=== PATIENT | male | born 1970 | race American Indian/Alaskan Native ===

== ENCOUNTER 2020-08-06 15:37 | Inpatient (IN) | payer OTHER ==
--- NOTE | 2020-08-06 15:46 | Event Note ---
ED Screening Note Date of service: 08/06/20 Time: 15:44 ED Screening Note: Patient here for generalized weakness, fatigue, intermittent shortness of breath. Thought that he had coronavirus last week but tested negative. Went to his doctor today and was advised that he was hypotensive and to come here. States history of diabetes, glucose 121. On my exam does appear somewhat generally weak, nontoxic and in no distress, blood pressure 102/76. This initial assessment/diagnostic orders/clinical plan/treatment(s) is/are subject to change based on patients health status, clinical progression and re- assessment by fellow clinical providers in the ED. Further treatment and workup at subsequent clinical providers discretion. Patient/guardian urged not to elope from the ED as their condition may be serious if not clinically assessed and managed. Initial orders include: Labs, urinalysis, chest x-ray, EKG
[2020-08-06 16:06] LABS: Hematocrit 46.8 % (35.5-45.6); Hemoglobin 15.3 gm/dl (11.8-15.2); Mean Corpuscular HGB Conc 33 % (32-34); Mean Corpuscular Volume 84 fl (84-94); Platelet Count 636 K/mm3 (140-440); Red Blood Count 5.55 M/mm3 (3.65-5.03); Red Cell Distribution Width 13.7 % (13.2-15.2)
[2020-08-06 16:27] LABS: Albumin 3.9 g/dL (3.9-5); Calcium 10.2 mg/dL (8.4-10.2)
--- NOTE | 2020-08-06 16:28 | XRay Report ---
CHEST 2 VIEWS INDICATION: sob. Covid +2 weeks ago. COMPARISON: None FINDINGS: Support devices: None. Heart: Within normal limits. Lungs/pleura: There are moderate bilateral scattered airspace opacities consistent with viral infecti on or atypical pneumonia. No dense consolidation, pleural effusion or pneumothorax. There is poor in spiration. Additional findings: None. IMPRESSION: Diffuse bilateral lung opacities concerning for viral infection. Poor inspiration. Signer Name: Ryan Villaseñor Jr, MD Signed: 08/06/2020 4:24 PM Workstation Name: [id number]
[2020-08-06 17:00] LABS: Total Cells Counted 100
[2020-08-06 17:01] LABS: RBC Morphology Normal
--- NOTE | 2020-08-06 20:43 | Emergency Department Report ---
- General Chief complaint: Weakness Stated complaint: LOW BP SENT BY [facility] Time Seen by Provider: 08/06/20 15:44 Source: patient Mode of arrival: Ambulatory Limitations: No Limitations - History of Present Illness Initial comments: 49-year-old male, history of hypertension, presents to ED with generalized weakness. Patient states he tested positive for COVID-19 2 weeks ago. At that time his symptoms consisted of fever, body aches, loss of smell and taste, slight cough. Patient states now he is having some dyspnea on exertion. Patient was tested again 4 days ago and states the results were negative. Patient reports decreased p.o. intake for the last 5 days due to decreased appetite. States he has been sipping on Boost to try and get some sort of nutrition. Patient went to urgent care today because he was having generalized weakness. Patient's blood pressure was low at the urgent care, so he was advised to come to the ER. MD Complaint: generalized weakness, lack of energy -: days(s) (3) Location: generalized Severity: moderate Consistency: constant Improves with: none Worsens with: none Context: recent illness (COVID-19) Associated Symptoms: fever/chills, headaches, shortness of breath. denies: chest pain - Related Data Allergies Allergy/AdvReac Type Severity Reaction Status Date / Time No Known Allergies Allergy Unverified 08/06/20 15:42 ED Review of Systems ROS: Stated complaint: LOW BP SENT BY [facility] Other details as noted in HPI Comment: All other systems reviewed and negative Constitutional: chills, fever ENT: other (Reports loss of smell and taste) Respiratory: cough, SOB with exertion Cardiovascular: denies: chest pain Gastrointestinal: denies: vomiting, diarrhea Musculoskeletal: myalgia ED Past Medical Hx - Past Medical History Hx Diabetes: Yes - Surgical History Past Surgical History?: No - Social History Smoking Status: Never Smoker Substance Use Type: None ED Physical Exam - General Limitations: No Limitations General appearance: alert, in no apparent distress - Head Head exam: Present: atraumatic, normocephalic - Eye Eye exam: Present: normal appearance, EOMI - ENT ENT exam: Present: mucous membranes moist - Neck Neck exam: Present: normal inspection - Respiratory Respiratory exam: Present: normal lung sounds bilaterally. Absent: respiratory distress - Cardiovascular Cardiovascular Exam: Present: regular rate, normal rhythm - GI/Abdominal GI/Abdominal exam: Present: soft. Absent: distended, tenderness - Extremities Exam Extremities exam: Present: normal inspection - Neurological Exam Neurological exam: Present: alert, oriented X3 - Psychiatric Psychiatric exam: Present: normal affect, normal mood - Skin Skin exam: Present: warm, dry, intact, normal color ED Course Vital Signs 08/06/20 08/06/20 08/06/20 15:46 19:39 19:48 Temperature 98.0 F 98.4 F Pulse Rate 93 H Respiratory 18 18 Rate Blood Pressure 102/76 76/53 O2 Sat by Pulse 96 97 Oximetry 08/06/20 08/06/20 08/06/20 19:51 20:01 20:31 Temperature Pulse Rate 90 91 H 89 Respiratory 20 22 18 Rate Blood Pressure 101/61 101/61 105/51 O2 Sat by Pulse 98 96 96 Oximetry 08/06/20 21:01 Temperature Pulse Rate Respiratory Rate Blood Pressure 100/73 O2 Sat by Pulse 95 Oximetry ED Medical Decision Making - Lab Data Result diagrams: 08/06/20 15:53 08/06/20 15:53 - Radiology Data Radiology results: report reviewed, image reviewed - Medical Decision Making 49-year-old male, tested positive for COVID-19 2 weeks ago, presents to ED with generalized weakness. Patient hypotensive here in the ED, however map has remained above 65. Patient reports some dyspnea on exertion. Chest x-ray shows bilateral pneumonia. Ambulatory O2 sats on room air stays at around 95%. Patient does not appear to be hypoxic. Labs show some acute renal failure and lactic acidosis with lactate of 5. This may be secondary to dehydration as patient reports he has not had an appetite and has had decreased p.o. intake o bipin the last 5 days. Blood cultures drawn, patient given Rocephin and azithromycin. He does not require Decadron at this time as patient is not hypoxic. His acute renal failure and hypotension may be secondary to dehydration and not eating. I have avoided 30/kg sepsis dose of IV fluids using patient's actual body weight as it is recommended that patients with COVID be kept as dry as possible. Using patient's actual body weight, with this dosing, patient would receive 3,450 mL. Patient does require some IV fluids secondary to his dehydration. Will use calculated ideal body weight of 78 kg for 30/kg bolus dosing, which amounts to a total of 2,340 mL fluid bolus. Patient will be admitted to hospitalist, Dr. Dyson, for further management. - Differential Diagnosis COVID, pneumonia, dehydration Critical Care Time: Yes Critical care time in (mins) excluding proc time.: 35 Critical care attestation.: If time is entered above; I have spent that time in minutes in the direct care of this critically ill patient, excluding procedure time. Critical Care Time: 35 min ED Disposition Clinical Impression: Pneumonia due to COVID-19 virus, Sepsis, Acute renal failure Disposition: OP ADMIT IP TO THIS HOSP Is pt being admited?: Yes Condition: Stable Instructions: Bacterial Pneumonia (ED) Referrals: PRIMARY CARE, [Primary Care Provider] - 3-5 Days Time of Disposition: 22:18
[2020-08-06] MEDS ORDERED: SODIUM CHLORIDE 0.9% 500 ML 500 ML IV ONE ×2 (20:44→21:57)
[2020-08-06] MEDS: cefTRIAXone/NS 1 GM/50 ML 1 GM/50 ML BAG IV ONE ×2 (22:03→22:30)
[2020-08-06] MEDS: AZITHROMYCIN 250 MG TAB PO ONE ×2 (22:03→22:33)
[2020-08-06] MEDS ORDERED: SODIUM CHLORIDE 0.9% 1000 ML 1,000 ML IV SCH ×2 (22:15→22:45)
[2020-08-06] MEDS ORDERED: SODIUM CHLORIDE 0.9% 1000 ML IV SOLN IV ONE (22:29)
[2020-08-06] MEDS ORDERED: MAGNESIUM HYDROXIDE (MOM) ORAL LIQD UDC PO PRN (22:33)
[2020-08-06] MEDS ORDERED: ONDANSETRON 4 MG/2 ML INJ IV PRN (22:33)
[2020-08-06] MEDS ORDERED: DEXTROSE 50% IN WATER (25GM) 50 ML SYRINGE IV PRN (22:33)
[2020-08-06] MEDS ORDERED: ACETAMINOPHEN 325 MG TAB PO PRN (22:33)
--- NOTE | 2020-08-06 22:45 | History and Physical Report ---
History of Present Illness Date of examination: 08/06/20 Date of admission: 08/06/2020 Chief complaint: Cough Fever Loss of appetite History of present illness: 78-year-old male with known history of hypertension and diabetes mellitus presenting to the emergency room today complaining of generalized weakness, fever and body aches over the past 24 to 48 hours. Patient indicates that he tested positive for COVID-19 about 2 weeks ago. However he has started having shortness of breath especially on exertion, cough which is nonproductive. He also indicates that he went for repeat COVID-19 test about 4 days ago and was said to be negative. He has been having decreased oral intake, loss of smell and taste. Patient was active in urgent care facility earlier today and his blood pressure was said to be low and therefore sent to the emergency room for further angela luation. Work-up in the emergency room today, chest x-ray reveals:Diffuse bilateral lung opacities concerning for viral infection, labs reveals lactic acidosis . Patient is admitted with pneumonia and started on empiric IV antibiotics. He will also be ruled out for COVID-19. Past History Past Medical History: diabetes, hypertension Past Surgical History: No surgical history Social history: no significant social history Family history: no significant family history Medications and Allergies Allergies Allergy/AdvReac Type Severity Reaction Status Date / Time No Known Allergies Allergy Verified 08/06/20 22:41 Active Meds: Active Medications Acetaminophen (Acetaminophen 325 Mg Tab) 650 mg PO Q4H PRN PRN Reason: Pain MILD(1-3)/Fever >100.5/WYNN Dextrose (Dextrose 50% In Water (25gm) 50 Ml Syringe) 50 ml IV Q30MIN PRN; Protocol PRN Reason: Hypoglycemia Dextrose (Dextrose 50% In Water (25gm) 50 Ml Syringe) 50 ml IV Q30MIN PRN; Protocol PRN Reason: Hypoglycemia Sodium Chloride (Nacl 0.9% 1000 Ml) 1,000 mls @ 75 mls/hr IV DIRECT CLAUDIA Ceftriaxone Sodium (Rocephin/Ns 2 Gm/100 Ml) 2 gm in 100 mls @ 200 mls/hr IV Q24H CLAUDIA; Protocol Azithromycin (Zithromax/Ns) 500 mg in 250 mls @ 250 mls/hr IV Q24H CLAUDIA; Protocol Insulin Human Lispro (Insulin Lispro 100 Unit/Ml) 0 unit SUB-Q ACHS CLAUDIA; Edgard col Magnesium Hydroxide (Magnesium Hydroxide (Mom) Oral Liqd Udc) 30 ml PO Q4H PRN PRN Reason: Constipation Ondansetron HCl (Ondansetron 4 Mg/2 Ml Inj) 4 mg IV Q8H PRN PRN Reason: Nausea And Vomiting Sodium Chloride (Sodium Chloride 0.9% 10 Ml Flush Syringe) 10 ml IV BID CLAUDIA Sodium Chloride (Sodium Chloride 0.9% 10 Ml Flush Syringe) 10 ml IV PRN PRN PRN Reason: LINE FLUSH Review of Systems Constitutional: fever, chills, fatigue, poor appetite Ears, nose, mouth and throat: no nasal congestion, no sore throat Cardiovascular: no chest pain, no palpitations Respiratory: cough, shortness of breath, no congestion, no wheezing Gastrointestinal: no abdominal pain, no nausea, no vomiting, no diarrhea Genitourinary Male: no dysuria, no hematuria, no flank pain, no nocturia Musculoskeletal: no neck pain, no low back pain Integumentary: no rash, no pruritis Neurological: no headaches, no confusion Psychiatric: no anxiety, no depression Exam - Constitutional Vitals: Temp Pulse Resp BP Pulse Ox 98.4 F 89 18 100/73 95 08/06/20 19:39 08/06/20 20:31 08/06/20 20:31 08/06/20 21:01 08/06/20 21:01 General appearance: Present: no acute distress, well-nourished - EENT Eyes: Present: PERRL, EOM intact. Absent: scleral icterus ENT: hearing intact, clear oral mucosa, dentition normal - Neck Neck: Present: supple, normal ROM - Respiratory Respiratory effort: normal Respiratory: bilateral: diminished - Cardiovascular Rhythm: regular Heart Sounds: Present: S1 & S2. Absent: gallop, systolic murmur, diastolic murmur, rub, click - Extremities Extremities: no ischemia, pulses intact, pulses symmetrical, No edema, normal temperature, normal color, Full ROM Peripheral Pulses: within normal limits - Abdominal General gastrointestinal: Present: soft, non-tender, non-distended, normal bowel sounds. Absent: mass - Integumentary Integumentary: Present: clear, warm, dry. Absent: rash - Musculoskeletal Musculoskeletal: strength equal bilaterally - Psychiatric Psychiatric: appropriate mood/affect, intact judgment & insight, memory intact, cooperative - Neurologic Neurologic: CNII-XII intact, no focal deficits, moves all extremities Results - Labs CBC & Chem 7: 08/06/20 15:53 08/06/20 15:53 Labs: Abnormal lab results 08/06/20 08/06/20 08/06/20 Range/Units 15:45 15:53 15:53 RBC 5.55 H (3.65-5.03) M/mm3 Hgb 15.3 H (11.8-15.2) gm/dl Hct 46.8 H (35.5-45.6) % Plt Count 636 H (140-440) K/mm3 Seg Neuts % (Manual) 79.0 H (40.0-70.0) % Carbon Dioxide 20 L (22-30) mmol/L BUN 49 H (9-20) mg/dL Creatinine 1.9 H (0.8-1.3) mg/dL Glucose 178 H (75-100) mg/dL POC Glucose 146 H (70-105) mg/dL Lactic Acid (0.7-2.0) mmol/L AST 97 H (5-40) units/L ALT 204 H (7-56) units/L 08/06/20 Range/Units 21:30 RBC (3.65-5.03) M/mm3 Hgb (11.8-15.2) gm/dl Hct (35.5-45.6) % Plt Count (140-440) K/mm3 Seg Neuts % (Manual) (40.0-70.0) % Carbon Dioxide (22-30) mmol/L BUN (9-20) mg/dL Creatinine (0.8-1.3) mg/dL Glucose (75-100) mg/dL POC Glucose (70-105) mg/dL Lactic Acid 5.00 H* (0.7-2.0) mmol/L AST (5-40) units/L ALT (7-56) units/L Assessment and Plan - Patient Problems (1) Pneumonia due to COVID-19 virus Current Visit: Yes Status: Acute Plan to address problem: Patient started on empiric IV antibiotics. We will check repeat COVID-19 test. Consult placed to infectious disease for evaluation and recommendation. Meanwhile patient placed on isolation precautions. (2) Sepsis Current Visit: Yes Status: Acute Plan to address problem: Possibly secondary to the pneumonia. Patient will be given gentle IV fluid hydration and we will continue with antibiotics. (3) Acute renal failure Current Visit: Yes Status: Acute Plan to address problem: Possibly prerenal. Patient given some IV fluid. Will follow up on BUN and creatinine. Baseline BUN and creatinine unknown. We will also appreciate inputs from nephrology. (4) Diabetes mellitus Current Visit: Yes Status: Acute Plan to address problem: We will monitor Accu-Cheks closely for good glycemic control. (5) DVT prophylaxis Current Visit: Yes Status: Acute Plan to address problem: Patient placed on subcutaneous heparin. (6) Full code status Current Visit: Yes Status: Acute Plan to address problem: Patient is a full code.
[2020-08-07 02:21] LABS: C-Reactive Protein 0.1 mg/dL (0.00-1.30)
[2020-08-07] MEDS: HEPARIN 5,000 UNIT/1 ML VIAL SUB-Q SCH ×3 (05:29→23:39)
[2020-08-07 06:29] LABS: Basophils # (Auto) 0.1 K/mm3 (0.0-0.1); Basophils % (Auto) 1.2 % (0.0-1.8); Eosinophils # (Auto) 0.1 K/mm3 (0.0-0.4); Eosinophils % (Auto) 0.8 % (0.0-4.3); Hematocrit 39.9 % (35.5-45.6); Hemoglobin 13.1 gm/dl (11.8-15.2); Lymphocytes # (Auto) 1.4 K/mm3 (1.2-5.4); Lymphocytes % (Auto) 17.8 % (13.4-35.0); Mean Corpuscular HGB Conc 33 % (32-34); Mean Corpuscular Volume 85 fl (84-94); Monocytes # (Auto) 0.9 K/mm3 (0.0-0.8); Monocytes % (Auto) 11.7 % (0.0-7.3); Platelet Count 466 K/mm3 (140-440); Red Blood Count 4.71 M/mm3 (3.65-5.03); Red Cell Distribution Width 13.5 % (13.2-15.2)
[2020-08-07 06:41] LABS: INR 1.08 (0.87-1.13)
[2020-08-07 06:44] LABS: Calcium 8.9 mg/dL (8.4-10.2)
[2020-08-07] MEDS: INSULIN LISPRO 100 UNIT/ML SUB-Q SCH ×5 (07:30→23:45)
[2020-08-07] MEDS ORDERED: AZITHROMYCIN/NS 500 MG/250 ML 500 MG/250 ML BAG IV SCH (10:00)
[2020-08-07] MEDS ORDERED: cefTRIAXone/NS 2 GM/100 ML 2 GM/100 ML BAG IV SCH (10:00)
[2020-08-07 11:12] LABS: Bilirubin,Urine NEG (Negative); Blood,Urine SM (Negative); Color,Urine Yellow (Yellow); Mucus,Urine FEW /HPF; Urobilinogen,Urine < 2.0 mg/dL (<2.0)
--- NOTE | 2020-08-07 12:42 | Consultation ---
History of Present Illness - Reason for Consult Consult date: 08/07/20 acute renal failure Requesting physician: BART MURRY - History of Present Illness This is a 49 yo M with past medical history of hypertension and diabetes mellitus presenting to the ER with complaints of SOB, WARREN, generalized weakness, fever and body aches over the past 24hrs. Patient reportedly was tested positive for COVID-19 about 2 weeks ago and a repeat COVID-19 test about 4 days ago and was said to be negative. He has been experiencing decreased oral intake, loss of smell and taste. in ER BP was as low as 70/50s, chest x-ray showed diffuse bilateral lung opacities concerning for viral infection, labs reveals lactic acidosis. Patient is admitted with pneumonia and started on empiric IV antibiotics. Labs also showed elevaterd lactic acid at >2.4, Ferritin 695, LDH 77, elevated BUN/Cr at 49/1.9mg/dl further rising to 49/2.8mg/dl for which renal consult is requested. Pt denies prior history of renal disease. Past History Past Medical History: diabetes, hypertension Past Surgical History: No surgical history Social history: no significant social history Family history: no significant family history Medications and Allergies Allergies Allergy/AdvReac Type Severity Reaction Status Date / Time No Known Allergies Allergy Verified 08/06/20 22:41 Active Meds: Active Medications Acetaminophen (Acetaminophen 325 Mg Tab) 650 mg PO Q4H PRN PRN Reason: Pain MILD(1-3)/Fever >100.5/WYNN Dextrose (Dextrose 50% In Water (25gm) 50 Ml Syringe) 50 ml IV Q30MIN PRN; Protocol PRN Reason: Hypoglycemia Heparin Sodium (Porcine) (Heparin 5,000 Unit/1 Ml Vial) 5,000 unit SUB-Q Q8HR CLAUDIA Last Admin: 08/07/20 05:29 Dose: 5,000 unit Documented by: Sodium Chloride (Nacl 0.9% 1000 Ml) 1,000 mls @ 75 mls/hr IV DIRECT CLAUDIA Last Admin: 08/07/20 05:28 Dose: 75 mls/hr Documented by: Ceftriaxone Sodium (Rocephin/Ns 2 Gm/100 Ml) 2 gm in 100 mls @ 200 mls/hr IV Q24HR CLAUDIA; Protocol Last Admin: 08/07/20 10:48 Dose: 200 mls/hr Documented by: Azithromycin (Zithromax/Ns) 500 mg in 250 mls @ 250 mls/hr IV Q24HR [facility]; Protocol Stop: 08/10/20 10:59 Last Admin: 08/07/20 11:39 Dose: 250 mls/hr Documented by: Insulin Human Lispro (Insulin Lispro 100 Unit/Ml) 0 unit SUB-Q ACHS CLAUDIA; Pro tocol Last Admin: 08/07/20 11:30 Dose: Not Given Documented by: Magnesium Hydroxide (Magnesium Hydroxide (Mom) Oral Liqd Udc) 30 ml PO Q4H PRN PRN Reason: Constipation Ondansetron HCl (Ondansetron 4 Mg/2 Ml Inj) 4 mg IV Q8H PRN PRN Reason: Nausea And Vomiting Sodium Chloride (Sodium Chloride 0.9% 10 Ml Flush Syringe) 10 ml IV BID CLAUDIA Last Admin: 08/07/20 10:47 Dose: 10 ml Documented by: Sodium Chloride (Sodium Chloride 0.9% 10 Ml Flush Syringe) 10 ml IV PRN PRN PRN Reason: LINE FLUSH Review of Systems All systems: negative Constitutional: weakness, malaise Respiratory: shortness of breath, dyspnea on exertion Exam - Vital Signs Vital signs: Vital Signs Temp Resp BP 98.0 F 18 102/76 08/06/20 15:46 08/06/20 15:46 08/06/20 15:46 - General Appearance General appearance: well-developed, well-nourished, appears stated age EENT: ATNC, PERRL, mucous membranes moist Neck: Present: neck supple Respiratory: Clear to Ascultation Heart: regular, S1S2 Gastrointestinal: Present: normoactive bowel sounds Integumentary: no rash Neurologic: no focal deficit, alert and oriented x3, strength 5/5, CN 3-12 intact Psychiatric: mood/affect appropriate, cooperative Results - Lab Results 08/07/20 05:25 08/07/20 05:25 Most recent lab results Calcium 8.9 mg/dL (8.4-10.2) 08/07/20 05:25 Magnesium 2.20 mg/dL (1.7-2.3) 08/06/20 15:53 Assessment and Plan - Patient Problems (1) Acute kidney failure with tubular necrosis Current Visit: Yes Status: Acute Plan to address problem: acute kidney injury is most likely d/t ATN in the setting of sepsis and hypotension. BP improved with multiple IV NS boluses, pt does not require vasopressors at present. Pt remains nonoliguric, no acute indication for renal replacement therapy, however Cr is rising further. Will monitor lytes and renal parameters closely and make further recommendations. check UA, urine lytes urine P/C ratio. Cont supportive care for MICHELLE/ATN avoid further nephrotoxins, NSAIDs, IV contrast. (2) Pneumonia due to COVID-19 virus Current Visit: Yes Status: Acute Plan to address problem: pt initiated on azithromycin/ceftriaxone. no renal adjustment needed. repeat COVID19 test pending. (3) Sepsis Current Visit: Yes Status: Acute Plan to address problem: BP stabilized with IV NS boluses, currently on empiric ABXs (4) Lactic acidosis Current Visit: Yes Status: Acute Plan to address problem: LA improved form 2.4 to 1.7 with hemodynamic stablization
--- NOTE | 2020-08-07 13:12 | Progress Note ---
Assessment and Plan --Pneumonia due to COVID-19 virus repeat COVID-19 test positive Consult placed to infectious disease for evaluation and recommendation. Patient started on dexamethasone for 10 days Patient does not qualify for remdesivir Meanwhile patient placed on isolation precautions. --Sepsis, ruled out Patient is vitally stable no leukocyte count Elevated lactic acid for dehydration --Diabetes mellitus We will monitor Accu-Cheks closely for good glycemic control. --Elevated D-dimer Ordered for VQ scan and lower extremity venous Doppler --MICHELLE, likely due to ATN from sepsis Continue to follow renal function, start on IV fluid If no improvement will consult nephrology Avoid nephrotoxins --Elevated lactic acid, likely due to dehydration Improved after IV fluid hydration -- DVT prophylaxis Patient placed on subcutaneous heparin. -- Full code status Daily course: 08/07/20: pending COVID test, follow inflammatory markers, cont abx for now. Order for VQ scan and lower extremity venous Doppler for elevated D-dimer. Start on gentle IV fluid hydration for MICHELLE. Follow BMP Subjective Date of service: 08/07/20 Interval history: Patient seen and examined. Medical records and medication list reviewed. No acute event overnight noted by the RN. Patient denies any chest pain, states that his appetite somewhat improved Discussed plan of care at bedside with patient. Objective - Exam Narrative Exam: Limited physical exam due to COVID-19 pandemic to minimize transmission of the disease. Vital reviewed and stable. GENERAL: well-developed well-nourished elderly lying on bed appeared to be in no discomfort. HEENT: Normocephalic. Atraumatic. NECK: Supple. CHEST/LUNGS: breathing nonlabored. HEART/CARDIOVASCULAR: Heart rate noted stable on chart ABDOMEN: Visibly not distended SKIN: There is no rash NEURO: No focal motor deficit. Follows command. MUSCULOSKELETAL: No joint effusion EXTRIMITY: No swelling, no cyanosis or clubbing. PSYCH: Cooperative. - Constitutional Vitals: Vital Signs - 12hr 08/07/20 08/07/20 08/07/20 01:38 01:52 06:17 Temperature 97.9 F Pulse Rate 92 H Respiratory 16 Rate Blood Pressure 113/73 119/80 O2 Sat by Pulse 96 94 Oximetry 08/07/20 12:00 Temperature 98.1 F Pulse Rate 93 H Respiratory 20 Rate Blood Pressure 111/71 O2 Sat by Pulse 94 Oximetry - Labs CBC & Chem 7: 02/04/21 04:46 08/08/20 04:46 Labs: Abnormal lab results 08/06/20 08/06/20 08/06/20 Range/Units 15:45 15:53 15:53 RBC 5.55 H (3.65-5.03) M/mm3 Hgb 15.3 H (11.8-15.2) gm/dl Hct 46.8 H (35.5-45.6) % Plt Count 636 H (140-440) K/mm3 Eddy % (Auto) (0.0-7.3) % Eddy # (Auto) (0.0-0.8) K/mm3 Seg Neuts % (Manual) 79.0 H (40.0-70.0) % D-Dimer (0-234) ng/mlDDU Carbon Dioxide 20 L (22-30) mmol/L BUN 49 H (9-20) mg/dL Creatinine 1.9 H (0.8-1.3) mg/dL Glucose 178 H (75-100) mg/dL POC Glucose 146 H (70-105) mg/dL Lactic Acid (0.7-2.0) mmol/L Ferritin (30.0-300.0) ng/mL AST 97 H (5-40) units/L ALT 204 H (7-56) units/L Lactate Dehydrogenase (91-180) units/L 08/06/20 08/06/20 08/06/20 Range/Units 21:30 22:33 22:33 RBC (3.65-5.03) M/mm3 Hgb (11.8-15.2) gm/dl Hct (35.5-45.6) % Plt Count (140-440) K/mm3 Eddy % (Auto) (0.0-7.3) % Eddy # (Auto) (0.0-0.8) K/mm3 Seg Neuts % (Manual) (40.0-70.0) % D-Dimer 2945.94 H (0-234) ng/mlDDU Carbon Dioxide (22-30) mmol/L BUN (9-20) mg/dL Creatinine (0.8-1.3) mg/dL Glucose (75-100) mg/dL POC Glucose (70-105) mg/dL Lactic Acid 5.00 H* 2.40 H* (0.7-2.0) mmol/L Ferritin (30.0-300.0) ng/mL AST (5-40) units/L ALT (7-56) units/L Lactate Dehydrogenase (91-180) units/L 08/06/20 08/06/20 08/07/20 Range/Units 22:33 22:33 05:25 RBC (3.65-5.03) M/mm3 Hgb (11.8-15.2) gm/dl Hct (35.5-45.6) % Plt Count 466 H (140-440) K/mm3 Eddy % (Auto) 11.7 H (0.0-7.3) % Eddy # (Auto) 0.9 H (0.0-0.8) K/mm3 Seg Neuts % (Manual) (40.0-70.0) % D-Dimer (0-234) ng/mlDDU Carbon Dioxide (22-30) mmol/L BUN (9-20) mg/dL Creatinine (0.8-1.3) mg/dL Glucose (75-100) mg/dL POC Glucose (70-105) mg/dL Lactic Acid (0.7-2.0) mmol/L Ferritin 695.4 H (30.0-300.0) ng/mL AST (5-40) units/L ALT (7-56) units/L Lactate Dehydrogenase 77 L (91-180) units/L 08/07/20 Range/Units 05:25 RBC (3.65-5.03) M/mm3 Hgb (11.8-15.2) gm/dl Hct (35.5-45.6) % Plt Count (140-440) K/mm3 Eddy % (Auto) (0.0-7.3) % Eddy # (Auto) (0.0-0.8) K/mm3 Seg Neuts % (Manual) (40.0-70.0) % D-Dimer (0-234) ng/mlDDU Carbon Dioxide (22-30) mmol/L BUN 49 H (9-20) mg/dL Creatinine 2.8 H (0.8-1.3) mg/dL Glucose (75-100) mg/dL POC Glucose (70-105) mg/dL Lactic Acid (0.7-2.0) mmol/L Ferritin (30.0-300.0) ng/mL AST (5-40) units/L ALT (7-56) units/L Lactate Dehydrogenase (91-180) units/L
[2020-08-07] MEDS ORDERED: SODIUM CHLORIDE 0.9% 1000 ML 1,000 ML IV SCH (13:15)
--- NOTE | 2020-08-07 14:07 | Consultation ---
History of Present Illness - Reason for Consult Consult date: 08/07/20 COVID-19 Requesting physician: BART MURRY - History of Present Illness The patient is a 49-year-old male with hypertension admitted to the hospital with generalized weakness. He also had fever, body ache, cough along with loss of smell and taste. He tested positive for COVID-19 as an outpatient. Due to poor appetite and shortness of breath, he came to the ER. Labs revealed normal CBC. D-dimer 2945. Creatinine increased, today's 2.8, procalcitonin 0.06. Ferritin 695, LDH 77, CRP 0.1. Patient is on room air. Review of Systems: reviewed in the chart, unable to obtain, minimize risk of transmission Past History Past Medical History: diabetes, hypertension Past Surgical History: No surgical history Social history: no significant social history Family history: no significant family history Medications and Allergies Allergies Allergy/AdvReac Type Severity Reaction Status Date / Time No Known Allergies Allergy Verified 08/06/20 22:41 Active Meds: Active Medications Acetaminophen (Acetaminophen 325 Mg Tab) 650 mg PO Q4H PRN PRN Reason: Pain MILD(1-3)/Fever >100.5/[place] Dextrose (Dextrose 50% In Water (25gm) 50 Ml Syringe) 50 ml IV Q30MIN PRN; Protocol PRN Reason: Hypoglycemia Heparin Sodium (Porcine) (Heparin 5,000 Unit/1 Ml Vial) 5,000 unit SUB-Q Q8HR CLAUDIA Last Admin: 08/07/20 05:29 Dose: 5,000 unit Documented by: Ceftriaxone Sodium (Rocephin/Ns 2 Gm/100 Ml) 2 gm in 100 mls @ 200 mls/hr IV Q24HR CLAUDIA; Protocol Last Admin: 08/07/20 10:48 Dose: 200 mls/hr Documented by: Azithromycin (Zithromax/Ns) 500 mg in 250 mls @ 250 mls/hr IV Q24HR CLAUDIA; P rotocol Stop: 08/10/20 10:59 Last Admin: 08/07/20 11:39 Dose: 250 mls/hr Documented by: Sodium Chloride (Nacl 0.9% 1000 Ml) 1,000 mls @ 75 mls/hr IV DIRECT CLAUDIA Insulin Human Lispro (Insulin Lispro 100 Unit/Ml) 0 unit SUB-Q ACHS CLAUDIA; Protocol Last Admin: 08/07/20 11:30 Dose: Not Given Documented by: Magnesium Hydroxide (Magnesium Hydroxide (Mom) Oral Liqd Udc) 30 ml PO Q4H PRN PRN Reason: Constipation Ondansetron HCl (Ondansetron 4 Mg/2 Ml Inj) 4 mg IV Q8H PRN PRN Reason: Nausea And Vomiting Sodium Chloride (Sodium Chloride 0.9% 10 Ml Flush Syringe) 10 ml IV BID [facility] Last Admin: 08/07/20 10:47 Dose: 10 ml Documented by: Sodium Chloride (Sodium Chloride 0.9% 10 Ml Flush Syringe) 10 ml IV PRN PRN PRN Reason: LINE FLUSH Physical Examination - Physical Exam Narrative exam: Physical Exam (reviewed in chart to minimize risk of transmission) Constitutional: deferred Head, Ears, Nose: deferred Eyes: deferred Neck: deferred Oral: deferred Cardiovascular: deferred Respiratory: deferred GI: deferred Musculoskeletal: deferred Skin: deferred Hem/Lymphatic: deferred Psych: deferred Neurological: deferred - Constitutional Vitals: Vital Signs Temp Pulse Resp BP Pulse Ox 98.1 F 93 H 20 111/71 94 08/07/20 12:00 08/07/20 12:00 08/07/20 12:00 08/07/20 12:00 08/07/20 12:00 Temperature -Last 24 Hours Temperature 98.1 F Temperature 97.9 F Temperature 98.1 F Temperature 98.4 F Temperature 98.0 F Results - Labs CBC & Chem 7: 08/07/20 05:25 08/07/20 05:25 Labs: Abnormal lab results 08/06/20 08/06/20 08/06/20 Range/Units 15:45 15:53 15:53 RBC 5.55 H (3.65-5.03) M/mm3 Hgb 15.3 H (11.8-15.2) gm/dl Hct 46.8 H (35.5-45.6) % Plt Count 636 H (140-440) K/mm3 [place] % (Auto) (0.0-7.3) % [place] # (Auto) (0.0-0.8) K/mm3 Seg Neuts % (Manual) 79.0 H (40.0-70.0) % D-Dimer (0-234) ng/mlDDU Carbon Dioxide 20 L (22-30) mmol/L BUN 49 H (9-20) mg/dL Creatinine 1.9 H (0.8-1.3) mg/dL Glucose 178 H (75-100) mg/dL POC Glucose 146 H (70-105) mg/dL Lactic Acid (0.7-2.0) mmol/L Ferritin (30.0-300.0) ng/mL AST 97 H (5-40) units/L ALT 204 H (7-56) units/L Lactate Dehydrogenase (91-180) units/L 08/06/20 08/06/20 08/06/20 Range/Units 21:30 22:33 22:33 RBC (3.65-5.03) M/mm3 Hgb (11.8-15.2) gm/dl Hct (35.5-45.6) % Plt Count (140-440) K/mm3 [place] % (Auto) (0.0-7.3) % [place] # (Auto) (0.0-0.8) K/mm3 Seg Neuts % (Manual) (40.0-70.0) % D-Dimer 2945.94 H (0-234) ng/mlDDU Carbon Dioxide (22-30) mmol/L BUN (9-20) mg/dL Creatinine (0.8-1.3) mg/dL Glucose (75-100) mg/dL POC Glucose (70-105) mg/dL Lactic Acid 5.00 H* 2.40 H* (0.7-2.0) mmol/L Ferritin (30.0-300.0) ng/mL AST (5-40) units/L ALT (7-56) units/L Lactate Dehydrogenase (91-180) units/L 08/06/20 08/06/20 08/07/20 Range/Units 22:33 22:33 05:25 RBC (3.65-5.03) M/mm3 Hgb (11.8-15.2) gm/dl Hct (35.5-45.6) % Plt Count 466 H (140-440) K/mm3 [place] % (Auto) 11.7 H (0.0-7.3) % [place] # (Auto) 0.9 H (0.0-0.8) K/mm3 Seg Neuts % (Manual) (40.0-70.0) % D-Dimer (0-234) ng/mlDDU Carbon Dioxide (22-30) mmol/L BUN (9-20) mg/dL Creatinine (0.8-1.3) mg/dL Glucose (75-100) mg/dL POC Glucose (70-105) mg/dL Lactic Acid (0.7-2.0) mmol/L Ferritin 695.4 H (30.0-300.0) ng/mL AST (5-40) units/L ALT (7-56) units/L Lactate Dehydrogenase 77 L (91-180) units/L 08/07/20 Range/Units 05:25 RBC (3.65-5.03) M/mm3 Hgb (11.8-15.2) gm/dl Hct (35.5-45.6) % Plt Count (140-440) K/mm3 [place] % (Auto) (0.0-7.3) % [place] # (Auto) (0.0-0.8) K/mm3 Seg Neuts % (Manual) (40.0-70.0) % D-Dimer (0-234) ng/mlDDU Carbon Dioxide (22-30) mmol/L BUN 49 H (9-20) mg/dL Creatinine 2.8 H (0.8-1.3) mg/dL Glucose (75-100) mg/dL POC Glucose (70-105) mg/dL Lactic Acid (0.7-2.0) mmol/L Ferritin (30.0-300.0) ng/mL AST (5-40) units/L ALT (7-56) units/L Lactate Dehydrogenase (91-180) units/L - Imaging and Cardiology Chest x-ray: report reviewed, image reviewed (Chest x-ray showed diffuse bilateral patchy infiltrates) Assessment and Plan Cultures: SARS CoV2 PCR: Positive as outpatient 08/07/2020 blood culture: No growth A/P: 49-year-old male with hypertension: #Bilateral pneumonia: Secondary to COVID-19. #Acute renal failure #Transaminitis Recs: -agree with IV/PO Dexamethasone 6 mg daily due to evidence of bilateral patchy infiltrates -Not hypoxic, also with renal failure, not a candidate for remdesivir -Procalcitonin is low, no antibiotics indicated at this time -F/U VTE evaluation -prophylactic anticoagulation based on d-dimer per hospital protocol -trend ferritin, LDH, d-dimer, CRP every 2-3 days for risk stratification and to assess disease progression Janie Hair MD, FACP [facility] ([facility] O: [phone] F: [phone]
--- NOTE | 2020-08-07 14:32 | Nuclear Medicine Report ---
NM perfusion only lung scan INDICATION / CLINICAL INFORMATION: Shortness of breath. TRACER: Technetium 99m MAA 5.1 mCi IV injection. COMPARISON: No relevant prior imaging study available. FINDINGS: Following injection of the above tracer, perfusion imaging was performed in 8 projections. Negative f or suspicious perfusion defect. IMPRESSION: No suspicious perfusion defect. Signer Name: Stu Ridley MD Signed: 08/07/2020 2:28 PM Workstation Name: [id number]
[2020-08-07] MEDS ORDERED: dexAMETHasone 4 MG/ML VIAL IV SCH (15:00)
--- NOTE | 2020-08-07 17:05 | Vascular Lab Report ---
DUPLEX DOPPLER LOWER EXTREMITY VEINS, BILATERAL INDICATION / CLINICAL INFORMATION: possible DVT. TECHNIQUE: Duplex doppler imaging was performed through the veins of both lower extremities using venous orquidea trev and other maneuvers. COMPARISON: None available. FINDINGS: RIGHT COMMON FEMORAL VEIN: Negative. RIGHT FEMORAL VEIN: Negative. RIGHT POPLITEAL VEIN: Negative. RIGHT CALF VEINS: Negative. LEFT COMMON FEMORAL VEIN: Negative. LEFT FEMORAL VEIN: Negative. LEFT POPLITEAL VEIN: Negative. LEFT CALF VEINS: Negative. ADDITIONAL FINDINGS: None. IMPRESSION: 1. No sonographic evidence for DVT in either lower extremity. Signer Name: Delmar Núñez MD Signed: 08/07/2020 5:01 PM Workstation Name: [id number]
[2020-08-07 19:08] LABS: Bacteria,Urine 1+ /HPF (Negative); Bilirubin,Urine NEG (Negative); Blood,Urine NEG (Negative); Color,Urine Yellow (Yellow); Mucus,Urine FEW /HPF; Protein,Urine <15 mg/dL mg/dL (Negative); RBC,Urine < 1.0 /HPF (0.0-6.0); Urobilinogen,Urine < 2.0 mg/dL (<2.0)
[2020-08-07 19:26] LABS: Creatinine,Urine 123.9 mg/dL (0.1-20.0)
[2020-08-08] MEDS: HEPARIN 5,000 UNIT/1 ML VIAL SUB-Q SCH (06:26)
[2020-08-08 06:33] LABS: Hematocrit 40.8 % (35.5-45.6)
[2020-08-08 06:49] LABS: Calcium 9.2 mg/dL (8.4-10.2)
[2020-08-08] MEDS: INSULIN LISPRO 100 UNIT/ML SUB-Q SCH ×2 (09:59→17:07)
[2020-08-08] MEDS ORDERED: ZINC SULFATE 220 MG CAP PO SCH (10:00)
[2020-08-08] MEDS ORDERED: DEXAMETHASONE 4 MG TAB PO SCH (10:00)
[2020-08-08] MEDS ORDERED: CHOLECALCIFEROL (VIT D3) 5,000 UNIT TAB PO SCH (10:00)
[2020-08-08] MEDS ORDERED: ASCORBIC ACID 500 MG TAB PO SCH (10:00)
--- NOTE | 2020-08-08 11:24 | Progress Note ---
Assessment and Plan Cultures: SARS CoV2 PCR: Positive as outpatient 08/07/2020 blood culture: No growth A/P: 49-year-old male with hypertension: #Bilateral pneumonia: Secondary to COVID-19. VTE eval negative. #MICHELLE: creatinine improving. #Transaminitis Recs: -get ambulatory sats, if not hypoxic, discontinue steroids Janie Hair MD, FACP [facility], [place] O: [phone] F: [phone] Subjective Date of service: 08/08/20 Interval history: No fever. remains on room air. Objective - Exam Narrative Exam: Physical Exam (reviewed in chart to minimize risk of transmission) Constitutional: deferred Head, Ears, Nose: deferred Eyes: deferred Neck: deferred Oral: deferred Cardiovascular: deferred Respiratory: deferred GI: deferred Musculoskeletal: deferred Skin: deferred Hem/Lymphatic: deferred Psych: deferred Neurological: deferred - Constitutional Vitals: Vital Signs Temp Pulse Resp BP Pulse Ox 98.2 F 92 H 18 134/84 96 08/08/20 06:11 08/08/20 06:11 08/08/20 06:11 08/08/20 06:11 08/08/20 06:11 Temperature -Last 24 Hours Temperature 98.2 F Temperature 97.5 F Temperature 98.1 F - Labs CBC & Chem 7: 08/08/20 04:46 08/08/20 04:46 Labs: Abnormal lab results 08/07/20 08/07/20 08/07/20 Range/Units 18:41 21:49 Unknown BUN (9-20) mg/dL Creatinine (0.8-1.3) mg/dL Glucose (75-100) mg/dL POC Glucose 185 H (70-105) mg/dL Urine Creatinine 123.9 H (0.1-20.0) mg/dL Urine Total Protein 19 H (5-11.8) mg/dL Coronavirus (PCR) Positive A (Negative) 08/08/20 08/08/20 Range/Units 04:46 07:47 BUN 42 H (9-20) mg/dL Creatinine 1.6 H (0.8-1.3) mg/dL Glucose 140 H (75-100) mg/dL POC Glucose 116 H (70-105) mg/dL Urine Creatinine (0.1-20.0) mg/dL Urine Total Protein (5-11.8) mg/dL Coronavirus (PCR) (Negative)
[2020-08-08 13:00] VITALS: BP 131/75
--- NOTE | 2020-08-08 13:34 | Progress Note ---
Assessment and Plan - Patient Problems (1) Acute kidney failure with tubular necrosis Current Visit: Yes Status: Acute Plan to address problem: acute kidney injury is most likely d/t ATN in the setting of sepsis and hypotension. BP improved with multiple IV NS boluses with ensuing improvement of renal function. Cr down to 1.6mg/dl. Cont supportive care for MICHELLE/ATN avoid further nephrotoxins, NSAIDs, IV contrast. (2) Pneumonia due to COVID-19 virus Current Visit: Yes Status: Acute Plan to address problem: pt initiated on azithromycin/ceftriaxone. no renal adjustment needed. repeat COVID19 test pending. (3) Sepsis Current Visit: Yes Status: Acute Plan to address problem: BP stabilized with IV NS boluses, currently on empiric ABXs (4) Lactic acidosis Current Visit: Yes Status: Acute Plan to address problem: LA improved form 2.4 to 1.7 with hemodynamic stablization Subjective Date of service: 08/08/20 Principal diagnosis: MICHELLE Interval history: in an effort to conserve Personal protective equipment and limit exposure, the patient was not directly examined by me. Interdisciplinary team notes, previous examinations, labs and diagnostics have been extensively reviewed and all recommendations taken into consideration. Physical exam deferred to primary team Objective - Exam Narrative Exam: exam deferred d/t PPE preservation - Vital Signs Vital signs: Vital Signs - 12hr 08/08/20 08/08/20 06:11 11:43 Temperature 98.2 F 98.7 F Pulse Rate 92 H 108 H Respiratory 18 18 Rate Blood Pressure 134/84 131/75 O2 Sat by Pulse 96 95 Oximetry - Lab 08/08/20 04:46 08/08/20 04:46 Most recent lab results Calcium 9.2 mg/dL (8.4-10.2) 08/08/20 04:46 Magnesium 2.20 mg/dL (1.7-2.3) 08/06/20 15:53 Urine Creatinine 123.9 mg/dL (0.1-20.0) H 08/07/20 18:41 Urine Sodium 46 mmol/L 08/07/20 18:41 Urine Total Protein 19 mg/dL (5-11.8) H 08/07/20 18:41 Medications & Allergies - Medications Allergies/Adverse Reactions: Allergies No Known Allergies Allergy (Verified 08/06/20 22:41) Home Medications: Home Medications Medication Instructions Recorded Confirmed Last Taken Type Ascorbic Acid [Vitamin C] 1,000 mg PO BID #14 tablet 08/08/20 Unknown Rx Cholecalciferol (Vitamin D3) 5,000 unit PO DAILY #7 tablet 08/08/20 Unknown Rx [Vitamin D3] Zinc Sulfate 220 mg PO BID #14 capsule 08/08/20 Unknown Rx dexAMETHasone [Decadron] 6 mg PO DAILY #7 tablet 08/08/20 Unknown Rx Active Medications: Generic Name Dose Route Start Last Admin Trade Name Freq PRN Reason Stop Dose Admin Acetaminophen 650 mg 08/06/20 22:33 Acetaminophen 325 Mg Tab PO Q4H PRN Pain MILD(1-3)/Fever >100.5/[place] Ascorbic Acid 1,000 mg 08/08/20 10:00 08/08/20 10:08 Ascorbic Acid 500 Mg Tab PO 1,000 mg BID CLAUDIA Administration Cholecalciferol 5,000 unit 08/08/20 10:00 08/08/20 10:08 Cholecalciferol (Vit D3) 5,000 Unit Tab PO 5,000 unit DAILY CLAUDIA Administration Dexamethasone 6 mg 08/08/20 10:00 08/08/20 10:07 Dexamethasone 4 Mg Tab PO 08/16/20 12:00 6 mg DAILY CLAUDIA Administration Dextrose 50 ml 08/06/20 22:33 Dextrose 50% In Water (25gm) 50 Ml Syringe IV Q30MIN PRN Hypoglycemia Protocol Heparin Sodium (Porcine) 5,000 unit 08/07/20 06:00 08/08/20 06:26 Heparin 5,000 Unit/1 Ml Vial SUB-Q 5,000 unit Q8HR CLAUDIA Administration Sodium Chloride 1,000 mls @ 75 mls/hr 08/07/20 13:15 08/08/20 00:55 Nacl 0.9% 1000 Ml IV 75 mls/hr DIRECT CLAUDIA Administration Insulin Human Lispro 0 unit 08/07/20 07:30 08/08/20 09:59 Insulin Lispro 100 Unit/Ml SUB-Q Not Given ACHS CLAUDIA Protocol Magnesium Hydroxide 30 ml 08/06/20 22:33 Magnesium Hydroxide (Mom) Oral Liqd Udc PO Q4H PRN Constipation Ondansetron HCl 4 mg 08/06/20 22:33 Ondansetron 4 Mg/2 Ml Inj IV Q8H PRN Nausea And Vomiting Sodium Chloride 10 ml 08/07/20 10:00 08/08/20 10:08 Sodium Chloride 0.9% 10 Ml Flush Syringe IV 10 ml BID CLAUDIA Administration Sodium Chloride 10 ml 08/06/20 22:33 Sodium Chloride 0.9% 10 Ml Flush Syringe IV PRN PRN LINE FLUSH Zinc Sulfate 220 mg 08/08/20 10:00 08/08/20 10:08 Zinc Sulfate 220 Mg Cap PO 220 mg BID CLAUDIA Administration
--- NOTE | 2020-08-08 14:48 | Discharge Summary ---
Providers - Providers Date of Admission: 08/07/20 14:28 Date of discharge: 08/08/20 Attending physician: MARLON GARZA 08/06/20 22:33 Consult to Dietitian/Nutrition [CONS] Routine Physician Instructions: Reason For Exam: Reason for Consult: Diet education Consult to Physician [CONS] Routine Comment: Consulting Provider: KEON ROSALES Physician Instructions: Reason For Exam: Pneumonia, H/O Covid-19 posititive 08/06/20 22:50 Consult to Physician [CONS] Routine Comment: Consulting Provider: KENJI DE Physician Instructions: Reason For Exam: ACUTE RENAL FAILURE Primary care physician: AIRCRAFT MAINTENANCE TECHNICIAN Hospitalization Condition: Stable Pertinent studies: Chest x-ray Hospital course: This is a 49 yo M with past medical history of hypertension and diabetes mellitus presenting to the ER with complaints of SOB, WARREN, generalized weakness, fever and body aches over the past 24hrs. Patient reportedly was tested positive for COVID-19 about 2 weeks ago and a repeat COVID-19 test about 4 days ago and was said to be negative. He has been experiencing decreased oral intake, loss of smell and taste. In ER BP was as low as 70/50s, chest x-ray showed diffuse bilateral lung opacities concerning for viral infection, labs reveals lactic acidosis. Patient is admitted with pneumonia and started on empiric IV antibiotics. Labs also showed elevaterd lactic acid at >2.4, Ferritin 695, LDH 77, elevated BUN/Cr at 49/1.9mg/dl further rising to 49/2.8mg/dl. His repeat Covid test in this hospital came positive. ID was consulted and recommended to start on dexamethasone for total 10 days. Antibiotic was discontinued as his procalcitonin level was normal. ID also recommended that there is no role for remdesivir at the later course of the disease and with declining renal function. Patient was assess for home oxygen requirement and his oxygen saturation on ambulation dropped to 87%. His renal function/creatinine also improved after IV fluid transfusion. Home O2 was arranged and patient was discharged home in stable condition. Discharge diagnosis: --Pneumonia due to COVID-19 virus repeat COVID-19 test positive Consult placed to infectious disease for evaluation and recommendation. Patient started on dexamethasone for 10 days Patient does not qualify for remdesivir --Acute hypoxic respiratory failure, likely due to COVID-19 pneumonia, present on admission O2 sat dropped to 87% on ambulation, patient was discharged home with home O2 --Sepsis, ruled out Patient is vitally stable no leukocyte count Elevated lactic acid for dehydration --Diabetes mellitus monitored Accu-Cheks closely for good glycemic control. --Elevated D-dimer Ordered for VQ scan and lower extremity venous Doppler -negative for DVT and acute PE --MICHELLE, likely due to vasomotor nephropathy Renal function improved with IV fluid, will do further follow-up as outpatient --Elevated lactic acid, likely due to dehydration Improved after IV fluid hydration -- DVT prophylaxis Patient placed on subcutaneous heparin. -- Full code status Disposition: [id number] HOME UNDER HOME [facility] Time spent for discharge: 34 minutes Core Measure Documentation - Palliative Care Palliative Care/ Comfort Measures: Not Applicable - Core Measures Any of the following diagnoses?: none Exam - Physical Exam Narrative exam: Limited physical exam due to COVID-19 pandemic to minimize transmission of the disease. Vital reviewed and stable. GENERAL: well-developed well-nourished elderly lying on bed appeared to be in no discomfort. HEENT: Normocephalic. Atraumatic. NECK: Supple. CHEST/LUNGS: breathing nonlabored. HEART/CARDIOVASCULAR: Heart rate noted stable on chart ABDOMEN: Visibly not distended SKIN: There is no rash NEURO: No focal motor deficit. Follows command. MUSCULOSKELETAL: No joint effusion EXTRIMITY: No swelling, no cyanosis or clubbing. PSYCH: Cooperative. - Constitutional Vitals: Temp Pulse Resp BP Pulse Ox 98.7 F 108 H 18 131/75 95 08/08/20 11:43 08/08/20 11:43 08/08/20 11:43 08/08/20 11:43 08/08/20 11:43 Plan Activity: advance as tolerated Weight Bearing Status: Weight Bear as Tolerated Diet: diabetic Special Instructions: home oxygen via (2l n/c) Additional Instructions: Repeat BMP in 1 week Follow up with: ESTEBAN ZURITA MD [Primary Care Provider] - 3-5 Days RICK SHORE MD [Staff Physician] - 7 Days Prescriptions: dexAMETHasone [Decadron] 6 mg PO DAILY #7 tablet Ascorbic Acid [Vitamin C] 1,000 mg PO BID #14 tablet Cholecalciferol (Vitamin D3) [Vitamin D3] 5,000 unit PO DAILY #7 tablet Zinc Sulfate 220 mg PO BID #14 capsule
[2020-08-08 15:17] LABS: C-Reactive Protein 0.4 mg/dL (0.00-1.30)
[2020-08-08] MEDS ORDERED: APIXABAN 2.5 MG TAB PO SCH (22:00)
== END 2020-08-08 17:00 | disposition home or self-care (01) | DRG 177 ==
LOC: ED 15:37 → 3A 22:33 → OBSVTOIN 08-07 14:28 → INTOOBSV 08-07 15:32
PROVIDERS: ADMIT Internal Medicine Geriatric Medicine; ATTEND Internal Medicine
DX: U07.1 COVID-19 (principal); J12.82 Pneumonia due to coronavirus disease 2019; N17.0 Acute kidney failure with tubular necrosis; E87.2 Acidosis; E11.9 Type 2 diabetes mellitus without complications; I95.9 Hypotension, unspecified; I10 Essential (primary) hypertension; Z79.4 Long term (current) use of insulin; Z79.899 Other long term (current) drug therapy; Z79.891 Long term (current) use of opiate analgesic; Z79.01 Long term (current) use of anticoagulants
CPT/HCPCS: 36415; 71046; 78580; 80048; 80053; 81001; 82140; 82570; 82728; 82962; 83615; 83735; 84145; 84156; 84300; 85007; 85014; 85018; 85025; 85379; 85610; 86140; 87040; 93005; 93970; 96365; 96375; G0378; A9540; J0456; J0696; J1100; J1644; J1815; J7030; J7040; J8540; U0003